=== PATIENT | female | born 1985 | race Caucasian/White ===

== ENCOUNTER 2017-08-27 06:49 | Emergency (ER) | payer SELFPAY ==
[2017-08-27 07:01] VITALS: BP 116/57
--- NOTE | 2017-08-27 07:31 | ER Document Report ---
HPI - HPI Patient complains to provider of: sore throat and cough Pain Level: 2 Context: Patient is a 32-year-old female presents emergency department with a chief complaint of sore throat, postnasal drip and nonproductive cough for the past 2 days. Patient states that her daughter had recent symptoms similar to hers. She denies getting a flu shot this year. Denies any body aches, fever, headache , difficulty swallowing, difficulty breathing. Patient states that she does smoke cigarettes approximately 1 pack for 3 days. She denies any chest pain, shortness of breath, difficulty breathing, dyspnea on exertion, nausea or vomiting. Otherwise healthy female. Denies any past medical issues, past surgical history. Past Medical History - Social History Smoking Status: Current Every Day Smoker Family History: Reviewed & Not Pertinent Renal/ Medical History: Denies: Hx Peritoneal Dialysis Past Surgical History: Reports: Hx Oral Surgery - Immunizations Hx Diphtheria, Pertussis, Tetanus Vaccination: No Vertical Provider Document - CONSTITUTIONAL Agree With Documented VS: Yes Notes: PHYSICAL EXAM GENERAL: Alert, interacts well. HEENT: NCAT, pale conjunctiva, extraocular movements intact, pupils PERRL. external ear normal, no evidence of external auditory canal tenderness, blood/ drainage, cerumen impaction, TM intact without evidence of effusion, bulging, injection, MMM, Uvula midline. Airway patent. No evidence of tonsillar enlargement, peritonsillar abscess, retropharyngeal abscess. LUNGS: Clear to auscultation bilaterally, no wheezes, rales, or rhonchi. No respiratory distress. HEART: Regular rate and rhythm. No murmurs, gallops, or rubs. NEUROLOGICAL: Alert and oriented x4. Normal speech. PSYCH: Normal affect, normal mood. SKIN: Warm, dry, normal turgor. No rashes or lesions noted. - INFECTION CONTROL TRAVEL OUTSIDE OF THE [place] IN LAST 30 DAYS: No - RESPIRATORY O2 Sat by Pulse Oximetry: 99 Course - Re-evaluation Re-evalutation: 08/27/17 07:28 Patient is a 32-year-old female who is hemodynamically stable, no acute distress and afebrile. Presentation is most consistent with a viral upper respiratory infection. Patient is overall well appearance, vitals within normal limits, well-hydrated. Patient denies any headache, neck pain, and has no evidence of meningismus on examination. Lungs are clear bilaterally. No evidence of respiratory distress. Based on clinical exam and history, I do not suspect an acute pneumonia, meningitis, strep pharyngitis, or an acute encephalitis. [facility] criteria 1. Patient declining influenza testing. No laboratory or imaging testing is indicated at this time. Will discharge patient with return precautions and followup recommendations. They are in agreement this plan have verbalized understanding return precautions. - Vital Signs Vital signs: Temp Pulse Resp BP Pulse Ox 98.6 F 77 16 116/57 L 99 08/27/17 06:59 08/27/17 06:59 08/27/17 06:59 08/27/17 06:59 08/27/17 06:59 Discharge - Discharge Clinical Impression: Cough, Post-nasal drainage Condition: Good Disposition: HOME, SELF-CARE Additional Instructions: Your symptoms are most likely due to a viral infection it should resolve over the next 7-14 days. You should take [id number] guanfacine per bottle instructions to help thin the mucus. For nasal congestion: I would recommend that you get [id number] oxymetazoline also known is afrin. Use only per bottle instructions and be sure to never use this for more than 3 days if you can develop severe rebound congestion. You may also use tylenol or ibuprofen as needed for aches and thorat discomfort. Please be sure to drink plenty of fluids and get rest. Return to the emergency department he began having difficulty breathing, chest pain, persistent vomiting, or any other symptoms that are concerning to you. Forms: Return to Work Referrals: HO ARELLANO MD [COMMUNITY BASED STAFF] - Follow up as needed
== END 2017-08-27 07:54 | disposition home or self-care (01) ==
LOC: ER 06:49
DX: R09.82 Postnasal drip (principal); R05 Cough; J02.9 Acute pharyngitis, unspecified; F17.200 Nicotine dependence, unspecified, uncomplicated
CPT/HCPCS: 99282